=== PATIENT | male | born 1955 | race Caucasian/White ===

== ENCOUNTER 2017-03-10 22:21 | Emergency (ER) | payer OTHER ==
[~2017-03-10] VITALS: Ht 167.6 cm; Wt 129.3 kg
--- NOTE | 2017-03-10 22:21 | NUR ---
BIBA TO ER BED 4
[2017-03-10 22:27] VITALS: BP 159/62
--- NOTE | 2017-03-10 22:27 | NUR ---
62 Y/O M BIBA C/O HIGH BP 191/101, NO OTHER COMPLAINED . ALERT AND ORIENTED X 4, AWAKE, AMBULATORY WITH A STEADY GAITE..BS 109 MG/DL. MED HX DM, HTN. NO S/S OF DISTRESS NOTED AT THE MOMENT.
--- NOTE | 2017-03-10 23:30 | NUR ---
PT RESTING IN BED, ON MONITOR. DENIES ANY CHEST PAIN OR OTHER PAIN. NO S/S OF DISTRESS NOTED AT THE MOMENT,VSS.
[2017-03-10 23:38] VITALS: BP 144/54
--- NOTE | 2017-03-10 23:38 | NUR ---
Patient discharged with v/s stable. Written and verbal after care instructions given and explained. Patient verbalized understanding. Ambulatory with steady gait. All questions addressed prior to discharge. Advised to follow up with PMD.
== END 2017-03-10 23:38 | disposition home or self-care (01) ==
LOC: MED 22:21
DX: I10 Essential (primary) hypertension (principal)
CPT/HCPCS: 93005; 99283